=== PATIENT | male | born 1980 | race Caucasian/White ===

== ENCOUNTER → 2017-01-04 | Outpatient (CLI) | payer OTHER ==
[2017-01-04 13:06] LABS: Blood Urea Nitrogen 18 mg/dL (9-20); Non-African American GFR(MDRD) >60 (>60 ml/min/1.73 sqM)
--- NOTE | 2017-01-04 14:22 | CT ---
EXAMINATION TYPE: CT angio chest DATE OF EXAM: 01/04/2017 1:46 PM COMPARISON: CTA chest and December 2012 HISTORY: Thoracic aortic aneurysm without rupture CT DLP: 563 mGycm Automated exposure control for dose reduction was used. CONTRAST: CTA scan of the thorax is performed without and with IV Contrast, patient injected with 100 mL of Omn ipaque 350, pulmonary embolism protocol. MIP images are created and reviewed. 3D reconstructed imag es are created on an independent workstation and reviewed. FINDINGS: Transverse aorta was not included on the exam due to technical factors, the exam will be re peated at no additional charge the patient should be requested. LUNGS: The lungs are grossly clear and the visualized portions, there is no concerning parenchymal ma ss or nodule identified. There is no pleural effusion or pneumothorax seen. The tracheobronchial t ree is patent. AORTA: The appearance is similar to previous exam. Aorta at the level of the root measures approxima tely 4.7 cm. Ascending aorta is approximately 4.5 cm. Which may grow slightly in the interval from 4. 2 cm. Descending aorta at the level of the aortic hiatus is approximately 2.3 cm, proximal descending aorta cannot be measured. MEDIASTINUM: There is satisfactory enhancement of the pulmonary artery and its branches, there is no CT evidence for pulmonary embolism. Mediastinum not entirely included on the exam. No pericardial eff usion is seen. OTHER: No additional significant abnormality is seen. IMPRESSION: EXAM IS LIMITED TECHNICALLY. SLIGHT INTERVAL GROWTH IN THE ASCENDING AORTA DESCRIBED. EXAM BE REPE ATED AT NO ADDITIONAL CHARGE THE PATIENT SHOULD BE REQUESTED. ADDITIONAL MEASUREMENTS DESCRIBED.
== END | disposition home or self-care (01) ==
LOC: RADCTMAIN 12:11
PROVIDERS: ATTEND Internal Medicine Interventional Cardiology
DX: R93.8 Abnormal findings on diagnostic imaging of other specified body structures (principal)
CPT/HCPCS: 82565; 84520; 71275; 36415; Q9967

== ENCOUNTER → 2017-12-20 | Outpatient (CLI) | payer OTHER ==
--- NOTE | 2017-12-20 18:56 | CT ---
EXAMINATION TYPE: CT angio chest DATE OF EXAM: 12/20/2017 5:46 PM COMPARISON: 01/04/2017 HISTORY: Follow up scan per patient CT DLP: 424 mGycm Automated exposure control for dose reduction was used. CONTRAST: CTA scan of the thorax is performed with IV Contrast, patient injected with 100 mL of Isovue 370, pul monary embolism protocol. There are 3-D post processed images.. FINDINGS: The lungs are clear of infiltrate. There is no pleural effusion. Heart is probably enlarged. There is aneurysm of the ascending aorta. The proximal ascending aorta measures 4.2 cm. This is unchanged com pared to old exam. I see no filling defects in the pulmonary arteries. There is no mediastinal adenopathy. There are no hilar masses. There is no evidence of aortic dissection. IMPRESSION: 4.2 CM ANEURYSM OF THE ASCENDING AORTA IS UNCHANGED COMPARED TO OLD EXAM. NO EVIDENCE OF PULMONARY EM BOLISM.
== END | disposition home or self-care (01) ==
LOC: RADCTMAIN 17:09
PROVIDERS: ATTEND Internal Medicine Interventional Cardiology
DX: I71.2 Thoracic aortic aneurysm, without rupture (principal)
CPT/HCPCS: 71275; Q9967

== ENCOUNTER → 2019-01-10 | Outpatient (CLI) | payer OTHER ==
--- NOTE | 2019-01-10 11:20 | CT ---
EXAMINATION TYPE: CT angio chest DATE OF EXAM: 01/10/2019 COMPARISON: 12/20/2017 HISTORY: 38-year-old male Congenital insufficiency of Aortic Valve TECHNIQUE: Contiguous axial scanning of the chest performed with IV Contrast, patient injected with 1 00 mL of Isovue 370. Coronal/sagittal MIP reconstructions performed. 3-D reconstructions generated on a dedicated independent workstation. CT DLP: 285.4 mGycm Automated exposure control for dose reduction was used. FINDINGS: Heart normal size without pericardial effusion. Aortic root measures 4.8 cm, unchanged. Ascending aorta aneurysmal at 4.3 cm, unchanged. Proximal arch attending 3.8 cm versus 3.7 cm, previously. Conventional branching anatomy. Descending aorta is normal caliber. No thoracic lymphadenopathy by CT size criteria. Mild bilateral gynecomastia is demonstrated. No consolidation or pleural effusion. Visualized upper abdomen shows no gross leak Bones: Scattered scattered small endplate Schmorl's nodes mid thoracic spine. IMPRESSION: 1. DILATED AORTIC ROOT AT 4.8 CM, UNCHANGED. (MEASUREMENTS WERE REPEATED ON THE COMPARISON STUDY TO P ROVIDE A RELIABLE COMPARISON). 2. STABLE ASCENDING AORTIC ANEURYSM AT 4.3 CM. 3. ECTATIC PROXIMAL ARCH AT 3.8 CM VERSUS 3.7 CM, PREVIOUSLY.
== END | disposition home or self-care (01) ==
LOC: RADCTMAIN 09:41
PROVIDERS: ATTEND Internal Medicine Interventional Cardiology
DX: I77.810 Thoracic aortic ectasia (principal)
CPT/HCPCS: 71275; Q9967

== ENCOUNTER → 2019-03-20 | Outpatient (CLI) | payer OTHER ==
[2019-03-20 17:36] LABS: African American GFR (CKD) 108.6 (60.0-200.0); Albumin 4.6 g/dL (3.80-4.90); Albumin/Globulin Ratio 2.42 (1.60-3.17); Anion Gap 10.7 mmol/L (4.00-12.00); Calcium 9.5 mg/dL (8.7-10.3); Carbon Dioxide 29.3 mmol/L (21.6-31.8); Globulin 1.9 g/dL (1.6-3.3); Potassium 4.5 mmol/L (3.5-5.5); Total Bilirubin 0.7 mg/dL (0.2-1.2); Total Protein 6.5 g/dL (6.2-8.2)
== END | disposition home or self-care (01) ==
LOC: LABWHC1 08:24
PROVIDERS: ATTEND Internal Medicine Interventional Cardiology
DX: Q23.1 Congenital insufficiency of aortic valve (principal)
CPT/HCPCS: 36415; 80053

== ENCOUNTER → 2019-07-17 | Outpatient (CLI) | payer OTHER ==
[2019-07-17 15:05] LABS: HCT 42.4 % (39.0-53.0); HGB 15.1 gm/dL (13.0-17.5); MCHC 35.7 g/dL (31.0-37.0); MCV 89.8 fL (80.0-100.0); Mean Platelet Volume 6.9; Platelet Count 208 k/uL (150-450); RBC 4.72 m/uL (4.30-5.90); RDW 12.2 % (11.5-15.5); WBC 4.7 k/uL (3.8-10.6)
[2019-07-17 15:06] LABS: African American GFR (CKD) >90 (>60 ml/min/1.73 sqM); Anion Gap 9 mmol/L; Blood Urea Nitrogen 16 mg/dL (9-20); Carbon Dioxide 28 mmol/L (22-30); Chloride 103 mmol/L (98-107); Potassium 4.1 mmol/L (3.5-5.1); Sodium 140 mmol/L (137-145)
== END | disposition home or self-care (01) ==
LOC: LABPAT 13:09
PROVIDERS: ATTEND Internal Medicine Interventional Cardiology
DX: Z01.812 Encounter for preprocedural laboratory examination (principal); Q23.1 Congenital insufficiency of aortic valve
CPT/HCPCS: 36415; 80051; 82565; 84520; 85027

== ENCOUNTER → 2019-07-18 | Day surgery (SDC) | payer OTHER ==
[2019-07-17 11:07] VITALS: BMI 26.5
[~2019-07-18] MED LIST: ALPRAZolam 0.25 MG TAB PO PRN; ALPRAZolam 0.5 MG TAB PO PRN; ASPIRIN 325 MG TAB PO STA; ATORVASTATIN 80 MG TAB PO STA; BENZOCAINE SPRAY 1 CAN TOPICAL PRN; HEPARIN SODIUM 1,000 UN/ML (10ML VL) IV ONE; HEPARIN SODIUM 1,000 UN/ML (10ML VL) ONE; IOPAMIDOL-370 125ML BTL INJ ONE; IOPAMIDOL-370 50ML BTL INJ ONE; IV FLUID CONTINUATION 950 ML IV ONE; LIDOCAINE 1% INJ 10MG/ML (20 ML MDV) ONE; LIDOCAINE 1% INJ 10MG/ML (20 ML MDV) SQ ONE; MIDAZOLAM 2 MG/2 ML VIAL IV ONE; NITROGLYCERIN SL TABS 0.4 MG TAB SUBLINGUAL PRN; RX INFO: IV CONTRAST WAS GIVEN 1 EACH MISC MISCELLANE PRN; SODIUM CHLORIDE 0.9% 1,000 ML IV ONE; SODIUM CHLORIDE 0.9% 1,000 ML IV SCH; SODIUM CHLORIDE 0.9% 1,000 ML in EMPTY BAG 1 BAG IV ONE; VERAPAMIL 2.5 MG/ML 2 ML AMP ONE; VERAPAMIL SYRINGE (5 MG/10 ML) INTRAARTER ONE; fentaNYL (PF) 50 MCG/ML 5 ML AMP IVP ONE
[2019-07-18 09:33] VITALS: RESP 18; TEMP 98
[2019-07-18 09:47] LABS: Basophils # (A) 0.1 k/uL (0-0.2); Basophils % (A) 2 %; Eosinophils # (A) 0.1 k/uL (0-0.7); Eosinophils % (A) 2 %; HCT 46.4 % (39.0-53.0); HGB 16.1 gm/dL (13.0-17.5); Lymphocytes # (A) 1.5 k/uL (1.0-4.8); Lymphocytes % (A) 34 %; MCH 31.1 pg (25.0-35.0); MCHC 34.6 g/dL (31.0-37.0); MCV 89.9 fL (80.0-100.0); Mean Platelet Volume 7.2; Monocytes # (A) 0.3 k/uL (0-1.0); Monocytes % (A) 6 %; Neutrophils # (A) 2.4 k/uL (1.3-7.7); Neutrophils % (A) 53 %; Platelet Count 200 k/uL (150-450); RBC 5.17 m/uL (4.30-5.90); RDW 12.1 % (11.5-15.5); WBC 4.5 k/uL (3.8-10.6)
[2019-07-18 09:56] LABS: African American GFR (CKD) >90 (>60 ml/min/1.73 sqM); Anion Gap 9 mmol/L; Blood Urea Nitrogen 16 mg/dL (9-20); Calcium 9.4 mg/dL (8.4-10.2); Carbon Dioxide 30 mmol/L (22-30); Chloride 103 mmol/L (98-107); Glucose 102 mg/dL (74-99); Non-African American GFR(CKD) >90 (>60 ml/min/1.73 sqM); Sodium 142 mmol/L (137-145)
[2019-07-18] MEDS: BENZOCAINE SPRAY 1 CAN MUCOUS MEM ONE ×2 (10:20→10:30)
[2019-07-18] MEDS: MIDAZOLAM 2 MG/2 ML VIAL IV ONE ×2 (10:30→10:41)
[2019-07-18] MEDS: fentaNYL (PF) 50 MCG/ML 2 ML AMP IV ONE ×2 (10:30→10:36)
--- NOTE | 2019-07-18 14:48 | ECHOT ---
TRANSESOPHAGEAL ECHOCARDIOGRAM DATE OF SERVICE: 07/18/2019 PERFORMING PHYSICIAN: Thompson Grubbs MD. PROCEDURE PERFORMED: Transesophageal echocardiogram. INDICATION: Evaluation of the severity of aortic regurgitation. COMPLICATION: None. LEVEL OF SEDATION: Moderate with sedation length of 15 minutes. PROCEDURE DESCRIPTION: After obtaining an informed consent, the patient was brought to the transesophageal echocardiogram suite. A pulse oximetry and heart rate monitors were attached to the patient. Subsequently, patient was turned into left lateral position. Subsequently, the transesophageal echocardiogram probe was advanced through the bite guard to the mid esophagus where 2D echocardiogram images as well as color Doppler images of various cardiac structures were obtained. We did also pulse and continuous- wave Doppler. After that, the probe was advanced to the stomach. Please note that during the procedure, the patient was quite agitated and we did not do a bubble study because of that. FINDINGS: The left ventricular dimension and systolic function appeared to be within normal limits. The ejection fraction appeared to be in the range of 55% to 60%. The right ventricle appeared to be of normal size and function. The left atrium appeared to be mildly dilated. The left atrial appendage appeared to be free from any thrombus. The interatrial septum appeared to be intact by color-flow Doppler. We did not interrogate the septum by bubble because the patient was quite agitated. The aortic valve is bicuspid valve with evidence of fusion of the right and left coronary cusp. Beside that, the lung coronary cusp is prolapsing with evidence of severe aortic insufficiency by color-flow Doppler. The aorta appeared to be dilated at the level of the sinus of Valsalva, at the sinus alveolar junction as well as beyond the sinus alveolar junction. The mitral valve appeared to be thickened with evidence of moderate mitral insufficiency. The tricuspid valve and pulmonic valve were not well visualized. CONCLUSION: 1. Normal left ventricular dimension and systolic function with ejection fraction around 55%. 2. Overall normal cardiac chamber sizes. 3. Normal left atrial appendage. 4. The interatrial septum was not well interrogated because of the patient agitation. 5. Thickened anterior and posterior mitral leaflet with evidence of moderate mitral insufficiency. 6. Bicuspid aortic valve with fusion of the right and left coronary cusp as well as prolapsing of the non-coronary cusp, as well as evidence of severe aortic insufficiency by color-flow Doppler. The aortic insufficiency is very eccentric and hitting the anterior mitral leaflet. 7. Poorly visualized tricuspid valve and pulmonic valve. 8. Dilated aorta at the level of the sinus of Valsalva as well as sinus alveolar junction as well as beyond the sinus alveolar junction. 9. No evidence of pericardial effusion seen. MMODL / IJN: [id number] /
--- NOTE | 2019-07-18 15:06 | CC ---
CARDIAC CATHETERIZATION REPORT DATE OF SERVICE: July 18, 2019 PERFORMING PHYSICIAN: Thompson Grubbs MD. PROCEDURE PERFORMED: 1. Selective right and left coronary angiogram. 2. Aortic root angiogram. INDICATION: This is a 38-year-old gentleman with a history of atrial septal defect and prior surgical repair as well as known bicuspid aortic valve and aortic insufficiency who underwent recently transesophageal echocardiogram after an echo showed severe AI. The patient was symptomatic where he was feeling tired and fatigue and short of breath with exertion. The transesophageal echocardiogram revealed severe AI so he was brought today for a heart catheterization. APPROACH: Right radial artery. COMPLICATION: None. LEVEL OF SEDATION: Moderate with sedation length of 32 minutes. PROCEDURE DESCRIPTION: After obtaining an informed consent, the patient was brought to the cardiac computer laboratory technician. The right radial artery was cannulated using micropuncture technique, the micropuncture wire passed easily, then I placed a 6-Italian sheath. I gave the patient 2 mg of verapamil IA and 10,000 units of heparin IV. After that, I did selective right and left coronary angiogram. Selective right coronary angiogram was performed using an AL1 catheter. Selective left coronary angiogram was performed using GL4 catheter. After that, I did an aortic root angiogram using a 6-Italian pigtail catheter. The procedure was completed without any complication. SELECTIVE CORONARY ANGIOGRAM: LEFT MAIN: The left main is angiographically normal, it bifurcates into LCX and LAD. LEFT CIRCUMFLEX ARTERY: The LCX is a large-caliber vessel and nondominant vessel, this is angiographically normal. In the mid portion it gives rise to a large OM branch which bifurcates into two separate branches and they both appeared to be angiographically normal. The circumflex after that appeared to be normal. LAD: The proximal LAD appeared to be normal. This gives rise into a large diagonal branch which the mid and distal portion seems to be normal. RIGHT CORONARY ARTERY: Right right coronary artery is a large-caliber vessel and a dominant vessel and appears to be angiographically normal. AORTIC ROOT ANGIOGRAM: The aortic root angiogram was performed in the KASH projection and using a power injection. There was 3+ aortic insufficiency identified. CONCLUSION: 1. Normal coronary angiogram. 2. There is 3+ aortic insufficiency seen. POSTPROCEDURE MANAGEMENT: 1. Maximize medical treatment. 2. The patient will be referred to see a cardiothoracic surgeon for aortic valve replacement. MMODL / IJN: [id number] /
[2019-07-18 16:10] VITALS: BP 100/55; PULSE 54
== END ==
LOC: CATHCVL 09:06
PROVIDERS: ATTEND Internal Medicine Interventional Cardiology
DX: I08.0 Rheumatic disorders of both mitral and aortic valves (principal); Q23.1 Congenital insufficiency of aortic valve; I73.9 Peripheral vascular disease, unspecified; I71.2 Thoracic aortic aneurysm, without rupture
CPT/HCPCS: 93312; 93320; 93325; 93454; 93567; 80048; 85025; C1769; C1894; J2250; J2001; J3010; J1644; Q9967 ×2

== ENCOUNTER → 2020-08-05 | Outpatient (CLI) | payer BC ==
--- NOTE | 2020-08-05 09:43 | CT ---
EXAMINATION TYPE: CT angio chest DATE OF EXAM: 08/05/2020 COMPARISON: 01/10/2019 HISTORY: 39-year-old male Thoracic aortic aneurysm without rupture TECHNIQUE: Contiguous axial scanning of the chest performed with IV Contrast, patient injected with 1 00 mL of Isovue 370. Coronal/sagittal MIP reconstructions performed. CT DLP: 373 mGycm Automated exposure control for dose reduction was used. FINDINGS: Median sternotomy wires. Heart normal size without pericardial effusion. Aortic root aneurysmal at 4.8 cm, unchanged. Ascending aorta aneurysmal at 4.5 cm, unchanged when remeasured. Proximal arch is ectatic at 3.7 cm. No evidence for aortic dissection. Conventional arch vessel branching anatomy. No thoracic lymphadenopathy. Trace bilateral gynecomastia redemonstrated. No consolidation or pleural effusion. A couple tiny groundglass foci in the right midlung, axial images 23 and 27 are new but of questionab le clinical significance. There may be a tiny hypercardia. Visualized upper abdomen otherwise shows normal mottled arterial pha se enhancement of the spleen. Bones: Scattered early degenerative disc disease. IMPRESSION: 1. STABLE ANEURYSMAL AORTIC ROOT AT 4.8 CM. ASCENDING AORTA ALSO ANEURYSMAL AT 4.5 CM, UNCHANGED WHEN REMEASURED ON THE PRIOR EXAM. 2. A COUPLE TINY GROUNDGLASS FOCI IN THE RIGHT MID LUNG ARE NEW BUT OF QUESTIONABLE CLINICAL SIGNIFIC ANCE IF THE PATIENT IS ASYMPTOMATIC. CORRELATE FOR SMALL NONSPECIFIC INFECTIOUS/INFLAMMATORY FOCI.
== END | disposition home or self-care (01) ==
LOC: RADCTMAIN 08:42
PROVIDERS: ATTEND Internal Medicine Interventional Cardiology
DX: I71.2 Thoracic aortic aneurysm, without rupture (principal); Q25.43 Congenital aneurysm of aorta; R91.8 Other nonspecific abnormal finding of lung field
CPT/HCPCS: 71275; Q9967

== ENCOUNTER 2022-03-21 12:14 | Inpatient (IN) | payer BC ==
[2022-03-21 13:56] LABS: Basophils # (A) 0.1 k/uL (0-0.2); Basophils % (A) 2 %; Eosinophils # (A) 0.1 k/uL (0-0.7); Eosinophils % (A) 1 %; HCT 45.7 % (39.0-53.0); HGB 15.8 gm/dL (13.0-17.5); Lymphocytes # (A) 0.9 k/uL (1.0-4.8); Lymphocytes % (A) 22 %; MCH 31.9 pg (25.0-35.0); MCHC 34.5 g/dL (31.0-37.0); MCV 92.6 fL (80.0-100.0); Mean Platelet Volume 7.6; Monocytes # (A) 0.3 k/uL (0-1.0); Monocytes % (A) 7 %; Neutrophils # (A) 2.6 k/uL (1.3-7.7); Neutrophils % (A) 65 %; Platelet Count 286 k/uL (150-450); RBC 4.93 m/uL (4.30-5.90)
[2022-03-21 14:04] LABS: ALT 24 U/L (4-49); AST 40 U/L (17-59); African American GFR (CKD) >90 (>60 ml/min/1.73 sqM); Albumin 4.8 g/dL (3.5-5.0); Alkaline Phosphatase 89 U/L (38-126); Anion Gap 9 mmol/L; Blood Urea Nitrogen 12 mg/dL (9-20); C Reactive Protein 0.6 mg/dL (<1.0); Calcium 9.7 mg/dL (8.4-10.2); Carbon Dioxide 25 mmol/L (22-30); Chloride 103 mmol/L (98-107); Glucose 86 mg/dL (74-99); Non-African American GFR(CKD) >90 (>60 ml/min/1.73 sqM); Potassium 4.5 mmol/L (3.5-5.1); Sodium 137 mmol/L (137-145); Total Bilirubin 0.6 mg/dL (0.2-1.3); Total Protein 7.8 g/dL (6.3-8.2)
--- NOTE | 2022-03-21 14:12 | XR ---
EXAMINATION TYPE: XR tibia fibula RT DATE OF EXAM: 03/21/2022 1:52 PM INDICATION: Patient age:Male; 41 years old; Reason for study: infection, leg; COMPARISON: None TECHNIQUE: The left tibia/fibula was examined in AP and lateral projections. FINDINGS: Acute comminuted oblique fracture through the proximal diaphysis with 9 mm displacement. Sk in defect noted on the medial aspect of the leg. No other IMPRESSION: 1. Acute oblique comminuted fracture of the left proximal fibula diaphysis with mild medial displace ment. 2. Skin defect without subcutaneous lucencies to suggest abscess.
[2022-03-21] MEDS ORDERED: NALOXONE 0.4 MG/ML 1 ML VIAL IV PRN (14:31)
[2022-03-21] MEDS ORDERED: ACETAMINOPHEN TAB 325 MG TAB PO PRN (14:31)
[2022-03-21] MEDS ORDERED: ONDANSETRON 4 MG/2 ML VIAL IVP PRN (14:31)
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
[2022-03-21] MEDS ORDERED: VANCOMYCIN IV PER PHARMACY 1 EACH MISC MISCELLANE PRN (14:33)
[2022-03-21] MEDS ORDERED: VANCOMYCIN 1,500 MG in SODIUM CHLORIDE 0.9% 250 ML IVPB ONE (15:00)
[2022-03-21] MEDS ORDERED: PIPERACILLIN-TAZOBACTAM 3.375 GM in SODIUM CHLORIDE 0.9% 100 ML IVPB SCH (16:00)
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
[2022-03-22] MEDS: CEFEPIME 2 GM in SODIUM CHLORIDE 0.9% 100 ML IVPB SCH ×2 (00:09→08:54)
[2022-03-22] MEDS: VANCOMYCIN 1,500 MG in SODIUM CHLORIDE 0.9% 250 ML IVPB SCH ×2 (04:27→17:14)
[2022-03-22 07:02] LABS: African American GFR (CKD) >90 (>60 ml/min/1.73 sqM); Non-African American GFR(CKD) 80 (>60 ml/min/1.73 sqM)
[2022-03-22] MEDS ORDERED: ceFAZolin 1,000 MG in SODIUM CHLORIDE 0.9% IRRIG BTL 250 ML IRRIGATION ONE (09:34)
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
[2022-03-22] MEDS ORDERED: KETOROLAC 15 MG/ML 1 ML VIAL ONE (10:31)
[2022-03-22] MEDS ORDERED: ONDANSETRON 4 MG/2 ML VIAL ONE (10:31)
[2022-03-22] MEDS ORDERED: MIDAZOLAM 2 MG/2 ML VIAL ONE (10:31)
[2022-03-22] MEDS ORDERED: fentaNYL (PF) 50 MCG/ML 2 ML AMP ONE (10:31)
[2022-03-22] MEDS ORDERED: PROPOFOL 10 MG/ML 20 ML VIAL IV ONE (10:31)
[2022-03-22] MEDS ORDERED: LIDOCAINE 2% INJ 20 MG/ML (2 ML VIAL) ONE (10:31)
[2022-03-22] MEDS ORDERED: DEXAMETHASONE SOD PHOSPHATE 10 MG/ML 1 ML VIAL ONE (10:31)
[2022-03-22] MEDS ORDERED: SODIUM CHLORIDE 0.9% 1,000 ML IV ONE (10:33)
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
[2022-03-22] MEDS: HYDROmorphone 0.5 MG/0.5 ML SYRINGE IVP ONE ×2 (11:28→11:38)
[2022-03-22] MEDS: HYDROcodone/APAP 5-325MG 1 EACH TAB PO PRN ×2 (17:21→23:08)
--- NOTE | 2022-03-22 17:44 | P.PN ---
Subjective Progress Note Date: 03/22/22 Principal diagnosis: Right leg infected wound Patient is a 41-year-old male with a traumatic wound to the left leg presented to hospital with worsening cellulitis and infection in this patient who is status post surgical debridement completed 03/22/2022 and deep cultures for some except on today's evaluation that is 03/22/2022, the patient denies having any fever or chills, the patient pain to the right leg wound is currently controlled, the patient denies having any chest pain shortness of breath or cough no abdominal pain no diarrhea Objective - Vital Signs Vital signs: Vital Signs Temp 97.4 F L 03/22/22 11:20 Pulse 64 03/22/22 11:46 Resp 16 03/22/22 11:50 BP 113/57 03/22/22 11:46 Pulse Ox 98 03/22/22 11:50 FiO2 Intake & Output 03/21/22 03/22/22 03/22/22 18:59 06:59 18:59 Intake Total 725 300 Output Total 20 Balance 725 280 Weight 88.451 kg Intake: IV 300 Intake, IV Titration 225 Amount Cefepime 2 gm In Sodium 100 Chloride 0.9% 100 ml @ 25 mls/hr IVPB Q8HR [facility] Rx# :[id number] Vancomycin 1,500 mg In 125 Sodium Chloride 0.9% 250 ml @ 125 mls/hr IVPB Q12H [facility] Rx#:[id number] Oral 500 Output: Estimated Blood Loss 20 Other: # Voids 3 - Exam GENERAL DESCRIPTION: Middle-age male lying in bed in no distress RESPIRATORY SYSTEM: Unlabored breathing , decreased breath sounds at bases HEART: S1 S2 regular rate and rhythm , ABDOMEN: Soft , no tenderness EXTREMITIES: Right leg wound is covered with a wound VAC - Labs CBC & Chem 7: 03/21/22 13:30 03/22/22 06:33 Labs: Microbiology - Last 24 Hours (Table) 03/21/22 13:30 Gram Stain - Preliminary Leg - Right Wound Culture - Preliminary Presumptive MRSA Assessment and Plan (1) Abscess of right leg Current Visit: Yes Status: Acute Code(s): L02.415 - CUTANEOUS ABSCESS OF RIGHT LOWER LIMB SNOMED Code(s): 199713680 (2) Cellulitis of right leg Current Visit: Yes Status: Acute Code(s): L03.115 - CELLULITIS OF RIGHT LOWER LIMB SNOMED Code(s): 032024313 Plan: 1patient with right lower extremity wound traumatic with concern for nonhealing wound and possible secondary infection failing to respond to outpatient oral Bactrim DS and Keflex therapy 2- patient is status post surgical debridement with evidence of deep infection initial culture positive for MRSA blood cultures are pending 3- patient to continue with the vancomycin we will discontinue cefepime 4- patient will likely need a PICC line and outpatient IV antibiotic as well as wound VAC, disease case manager rn start working on it Time with Patient: Less than 30
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
[2022-03-23] MEDS: VANCOMYCIN 1,500 MG in SODIUM CHLORIDE 0.9% 250 ML IVPB SCH ×4 (04:32→23:29)
[2022-03-23] MEDS: HYDROcodone/APAP 5-325MG 1 EACH TAB PO PRN ×4 (06:19→19:56)
[2022-03-23 09:05] LABS: African American GFR (CKD) >90 (>60 ml/min/1.73 sqM); Non-African American GFR(CKD) >90 (>60 ml/min/1.73 sqM)
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
[2022-03-23] MEDS ORDERED: VANCOMYCIN TROUGH DUE 1 EACH MISC MISCELLANE ONE (15:00)
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
[2022-03-24 07:38] LABS: African American GFR (CKD) >90 (>60 ml/min/1.73 sqM); Non-African American GFR(CKD) >90 (>60 ml/min/1.73 sqM)
[2022-03-24 08:13] VITALS: BP 128/64; PULSE 60; RESP 16; TEMP 98
[2022-03-24] MEDS: VANCOMYCIN 1,500 MG in SODIUM CHLORIDE 0.9% 250 ML IVPB SCH (08:35)
[2022-03-24] MEDS ORDERED: ASPIRIN 81 MG PO SCH (09:00)
[2022-03-24] MEDS ORDERED: FAMOTIDINE 20 MG TAB PO SCH (09:00)
--- NOTE | 2022-03-24 12:26 | P.PN ---
Subjective Progress Note Date: 03/23/22 Principal diagnosis: Right leg infected wound Patient is a 41-year-old male with a traumatic wound to the left leg presented to hospital with worsening cellulitis and infection in this patient who is status post surgical debridement completed 03/22/2022 and deep cultures on today's evaluation that is 03/23/2022, the patient remains to be afebrile, the patient pain to the right leg wound is controlled, the patient denies having any chest pain shortness of breath or cough no abdominal pain no diarrhea Objective - Vital Signs Vital signs: Vital Signs Temp 98 F 03/23/22 07:52 Pulse 62 03/23/22 07:52 Resp 17 03/23/22 07:52 BP 126/65 03/23/22 07:52 Pulse Ox 98 03/23/22 07:52 FiO2 Intake & Output 03/22/22 03/23/22 03/23/22 18:59 06:59 18:59 Intake Total 300 Output Total 20 Balance 280 Intake: IV 300 Output: Estimated Blood Loss 20 Other: Voiding Method Toilet # Voids 2 2 - Exam GENERAL DESCRIPTION: Middle-age male lying in bed in no distress RESPIRATORY SYSTEM: Unlabored breathing , decreased breath sounds at bases HEART: S1 S2 regular rate and rhythm , ABDOMEN: Soft , no tenderness EXTREMITIES: Right leg wound is covered with a wound VAC - Labs CBC & Chem 7: 03/21/22 13:30 03/24/22 06:53 Labs: Microbiology - Last 24 Hours (Table) 03/21/22 13:30 Gram Stain - Final Leg - Right Wound Culture - Final Methicillin resist S. aureus 03/22/22 10:58 Gram Stain - Preliminary Leg - Left Wound Culture - Preliminary Presumptive MRSA 03/22/22 10:58 Gram Stain - Preliminary Leg - Left Wound Culture - Preliminary Presumptive MRSA 03/22/22 10:58 Anaerobic Culture - Preliminary Leg - Left 03/22/22 10:58 Anaerobic Culture - Preliminary Leg - Left 03/21/22 13:15 Blood Culture - Preliminary Blood No Growth after 24 hours 03/21/22 13:30 Blood Culture - Preliminary Blood No Growth after 24 hours Assessment and Plan (1) Abscess of right leg Current Visit: Yes Status: Acute Code(s): L02.415 - CUTANEOUS ABSCESS OF RIGHT LOWER LIMB SNOMED Code(s): 708882795 (2) Cellulitis of right leg Current Visit: Yes Status: Acute Code(s): L03.115 - CELLULITIS OF RIGHT LOWER LIMB SNOMED Code(s): 519428417 Plan: 1patient with right lower extremity wound traumatic with concern for nonhealing wound and possible secondary infection failing to respond to outpatient oral Bactrim DS and Keflex therapy 2- patient is status post surgical debridement with evidence of deep infection initial culture positive for MRSA blood cultures are pending 3- patient to continue with the vancomycin pharmacy to dose, patient will likely need a PICC line and outpatient IV antibiotic as well as wound VAC, Time with Patient: Less than 30
--- NOTE | 2022-03-24 12:27 | P.PN ---
Subjective Progress Note Date: 03/24/22 Principal diagnosis: Right leg infected wound Patient is a 41-year-old male with a traumatic wound to the left leg presented to hospital with worsening cellulitis and infection in this patient who is status post surgical debridement completed 03/22/2022 and deep cultures on today's evaluation that is 03/24/2022, the patient denies any fever and chills, the patient pain to the right leg has decreased in intensity, the patient denies having any chest pain shortness of breath or cough no abdominal pain no diarrhea Objective - Vital Signs Vital signs: Vital Signs Temp 98 F 03/24/22 08:00 Pulse 60 03/24/22 08:00 Resp 16 03/24/22 08:00 BP 128/64 03/24/22 08:00 Pulse Ox 98 03/24/22 08:00 FiO2 Intake & Output 03/23/22 03/24/22 03/24/22 18:59 06:59 18:59 Intake Total 590 Balance 590 Intake: Oral 590 Other: Voiding Method Toilet Toilet Toilet # Voids 1 - Exam GENERAL DESCRIPTION: Middle-age male lying in bed in no distress RESPIRATORY SYSTEM: Unlabored breathing , decreased breath sounds at bases HEART: S1 S2 regular rate and rhythm , ABDOMEN: Soft , no tenderness EXTREMITIES: Right leg wound is covered with a wound VAC - Labs CBC & Chem 7: 03/21/22 13:30 03/24/22 06:53 Labs: Microbiology - Last 24 Hours (Table) 03/21/22 13:15 Blood Culture - Preliminary Blood No Growth after 48 hours 03/21/22 13:30 Blood Culture - Preliminary Blood No Growth after 48 hours 03/21/22 13:30 Gram Stain - Final Leg - Right Wound Culture - Final Methicillin resist S. aureus 03/22/22 10:58 Gram Stain - Preliminary Leg - Left Wound Culture - Preliminary Presumptive MRSA 03/22/22 10:58 Gram Stain - Preliminary Leg - Left Wound Culture - Preliminary Presumptive MRSA Assessment and Plan (1) Abscess of right leg Current Visit: Yes Status: Acute Code(s): L02.415 - CUTANEOUS ABSCESS OF RIGHT LOWER LIMB SNOMED Code(s): 766025887 (2) Cellulitis of right leg Current Visit: Yes Status: Acute Code(s): L03.115 - CELLULITIS OF RIGHT LOWER LIMB SNOMED Code(s): 399094629 Plan: 1patient with right lower extremity wound traumatic with concern for nonhealing wound and possible secondary infection failing to respond to outpatient oral Bactrim DS and Keflex therapy 2- patient is status post surgical debridement with evidence of deep infection initial culture positive for MRSA blood cultures are pending 3- patient seemed to have shown clinical improvement with vancomycin, in view of extensive infection we'll order a PICC line for outpatient IV vancomycin, patient will need a wound VAC to the right leg and will follow-up with me in the wound care center next week all his questions and concerns were answered Time with Patient: Less than 30
--- NOTE | 2022-03-24 12:32 | P.DS ---
Providers Date of admission: 03/21/22 14:21 Expected date of discharge: 03/24/22 Attending physician: Campos Meredith Consults: 03/21/22 14:31 Consult Physician Urgent Consulting Provider: Rosas Turner Consult Reason/Comments: Medical management Do you want consulting provider notified?: Yes Consult Physician Urgent Consulting Provider: Munira Quigley Consult Reason/Comments: Leg abscess, cellulitis Do you want consulting provider notified?: Yes Primary care physician: Rosas Turner - Discharge Diagnosis(es) (1) Left leg cellulitis Patient was admitted to the OR on 03/22/22 to undergo I and D of left lower leg wound. He had failed conservative measures as an outpatient and desired to proceed with elective surgery after given informed consent. He underwent the above procedure which he tolerated well without complication. Postoperative hospital course has remained without complication. On day of discharge he is afebrile, vital signs stable, labs within acceptable ranges, tolerating by mouth meds and diet, voiding without difficulty, positive flatus, denies abdominal pain or calf pain, pain is controlled on oral pain medication and has no new complaints. Wound vac in place, neurovascular status is intact, calf is soft and nontender, abdomen soft and nontender. Review of systems is negative for numbness, tingling, fever, chills, chest pain, shortness of breath, nausea, vomiting, dizziness, headaches, slurred speech or other. Current Visit: Yes Status: Acute Priority: Medium Procedures: I and D left leg, left fibula fracture Patient Condition at Discharge: Good Plan - Discharge Summary Discharge Rx Participant: Yes New Discharge Prescriptions: New Docusate [Colace] 100 mg PO BID #60 capsule HYDROcodone/APAP 5-325MG [Center 5-325] 1 tab PO Q4HR PRN #21 tab PRN Reason: Pain No Action Aspirin EC [Ecotrin Low Dose] 81 mg PO DAILY Cephalexin [Keflex] 1,000 mg PO Q12H Sulfamethox-Tmp 800-160Mg [Bactrim DS 800-160 mg] 1 tab PO BID Discharge Medication List Aspirin EC [Ecotrin Low Dose] 81 mg PO DAILY 03/21/22 [History] Cephalexin [Keflex] 1,000 mg PO Q12H 03/21/22 [History] Sulfamethox-Tmp 800-160Mg [Bactrim DS 800-160 mg] 1 tab PO BID 03/21/22 [History] Docusate [Colace] 100 mg PO BID #60 capsule 03/24/22 [Rx] HYDROcodone/APAP 5-325MG [Center 5-325] 1 tab PO Q4HR PRN #21 tab 03/24/22 [Rx] Follow up Appointment(s)/Referral(s): Rosas Turner MD [Primary Care Provider] - 1-2 days [facility],Infusion [NON-STAFF] - As Needed Campos Meredith DO [Doctor of Osteopathic Medicine] - 1 Week [facility] Visiting Nurse, [NON-STAFF] - As Needed Activity/Diet/Wound Care/Special Instructions: 1. Use crutches to aid in ambulation. 2. Nonweightbearing left lower extremity. 3. Do not wear premium equalizer boot over the left lower extremity. 4. Keep wound site clean, dry, and intact. 5. Wound VAC to be monitored by wound care. Discharge Disposition: HOME WITH HOME HEALTH SERVICES
[2022-03-24] MEDS ORDERED: LIDOCAINE 1% INJ 10MG/ML (5 ML VIAL-PF) SQ ONE ×2 (13:57→13:58)
[2022-03-24] MEDS ORDERED: DAPTOmycin 350 MG in SODIUM CHLORIDE 0.9% 50 ML IVPB SCH (14:00)
[2022-03-24] MEDS: HYDROcodone/APAP 5-325MG 1 EACH TAB PO PRN (14:36)
--- NOTE | 2022-03-24 14:57 | IR ---
EXAMINATION TYPE: IR cvc insert >=5 years DATE OF EXAM: 03/24/2022 COMPARISON: NONE CLINICAL HISTORY: Infection Needs long-term intravenous access for antibiotics. PROCEDURE: Hand hygiene obtained with soap and water and alcohol-based hand rub. After informed consent, the skin overlying the left basilic vein was localized with ultrasound and no davidson to be compressible and patent. An ultrasound image was obtained and submitted on the patient's c young. The overlying skin was prepped and draped and Lidocaine was used for local anesthesia. A skin pako was made with a scalpel. Access was gained to the vein under ultrasound guidance with a 21 gau ge needle and a 0.018 inch wire was advanced. Access site was dilated with Peel-Away sheath and cath eter tailored to the appropriate length and advanced such that the distal tip is at the cavoatrial ju nction. Spot image was obtained verifying placement. Catheter was fixed to the skin and a sterile d ressing was placed following hemostasis. Catheter was aspirated and flushed with saline. Patient wa s discharged in stable condition without complication.Maximal barrier technique is utilized. Ultraso und image is documented on the chart. Ultrasound used with sterile technique. Fluoro time and fluoroscopic images submitted to document procedure: 0.5 minutes fluoroscopy time, 92 intraoperative C-arm images document the procedure IMPRESSION: STATUS POST ULTRASOUND AND FLUOROSCOPIC GUIDED PICC LINE PLACEMENT, READY FOR USE. THIS PROCEDURE WAS PERFORMED BY THE UNDERSIGNED.
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
[2022-03-25] MEDS ORDERED: VANCOMYCIN TROUGH DUE 1 EACH MISC MISCELLANE ONE (07:00)
== END 2022-03-24 16:24 | disposition home health service (06) | DRG 571 ==
LOC: EC 12:14 → 4SSUR 14:21
PROVIDERS: ADMIT Orthopaedic Surgery; ATTEND Orthopaedic Surgery
PROC: 0JBP0ZZ Excision of Left Lower Leg Subcutaneous Tissue and Fascia, Open Approach (ICD-10-PCS; principal; 2022-03-22 10:45)
PROC: 02HV33Z Insertion of Infusion Device into Superior Vena Cava, Percutaneous Approach (ICD-10-PCS; 2022-03-24)
DX: L03.115 Cellulitis of right lower limb (principal); I96 Gangrene, not elsewhere classified; L02.415 Cutaneous abscess of right lower limb; S82.401A Unspecified fracture of shaft of right fibula, initial encounter for closed fracture; W23.0XXA Caught, crushed, jammed, or pinched between moving objects, initial encounter; V94.89XA Other water transport accident, initial encounter; Z79.82 Long term (current) use of aspirin
CPT/HCPCS: 36415; 36573; 80053; 80202; 82565; 83605; 85025; 86140; 87040; 87070; 87075; 87077; 87186; 87205; 99285

== ENCOUNTER → 2023-10-04 | Outpatient (CLI) | payer BC ==
--- NOTE | 2023-10-04 10:19 | CT ---
EXAMINATION TYPE: CT angio chest DATE OF EXAM: 10/04/2023 COMPARISON: 08/05/2020 HISTORY: bicuspid valve replacement follow up CT DLP: 794 mGycm CONTRAST: CTA thoracic aorta with 3-D reconstruction is performed and with IV Contrast, patient injected with 1 00 mL of Isovue 370. Contrast CTA of the thoracic aorta was performed from the lung apex through the upper abdomen. 3D re construction imaging obtained at a separate workstation. CT Chest: THORACIC AORTA: Ascending thoracic aortic aneurysm measuring 4.4 cm AP dimension versus 4.5 cm previo usly. Aortic arch and descending thoracic aorta are of normal caliber. Mild atheromatous changes seen . There is no evidence for dissection or periaortic collection. LUNGS: The lungs are clear and free of infiltrate or atelectasis. No pulmonary nodule or mass is det ected. No pleural effusion or CT evidence of interstitial lung disease. MEDIASTINUM: No evidence for mediastinal hematoma. The heart is not enlarged. No evidence for med iastinal mass or adenopathy. HILAR STRUCTURES: No evidence for mass. No hilar adenopathy is appreciated. OTHER: No significant abnormality. IMPRESSION- Centimeters stable ascending thoracic aortic aneurysm without complicating factors are noted.
== END | disposition home or self-care (01) ==
LOC: RADCTMAIN 08:47
PROVIDERS: ATTEND Internal Medicine Interventional Cardiology
DX: I71.21 Aneurysm of the ascending aorta, without rupture (principal); Z95.2 Presence of prosthetic heart valve
CPT/HCPCS: 71275; Q9967